=== PATIENT | female | born 1940 | race African-American/Black ===

== ENCOUNTER 2021-07-14 18:03 | Emergency (ER) | payer SELFPAY ==
[~2021-07-14] VITALS: Ht 160 cm; Wt 59.0 kg
[2021-07-14 18:19] VITALS: BP 97/56
== END 2021-07-14 20:41 | disposition left against medical advice (07) ==
LOC: ER 18:03
DX: R55 Syncope and collapse (principal); I95.9 Hypotension, unspecified; I12.0 Hypertensive chronic kidney disease with stage 5 chronic kidney disease or end stage renal disease; N18.6 End stage renal disease; Z85.21 Personal history of malignant neoplasm of larynx; Z87.891 Personal history of nicotine dependence
CPT/HCPCS: 99283